=== PATIENT | male | born 1960 | race Caucasian/White ===

== ENCOUNTER 2019-12-14 10:35 | Emergency (ER) | payer OTHER ==
[~2019-12-14] VITALS: Ht 180.3 cm; Wt 81.6 kg
== END 2019-12-14 14:11 | disposition home or self-care (01) ==
LOC: ER 10:35
DX: R42 Dizziness and giddiness (principal)

== ENCOUNTER 2022-09-08 10:46 | Emergency (ER) | payer OTHER ==
[~2022-09-08] VITALS: Ht 177.8 cm; Wt 86.2 kg
== END 2022-09-08 14:36 | disposition home or self-care (01) ==
LOC: ER 10:46
DX: S29.8XXA Other specified injuries of thorax, initial encounter (principal); S19.80XA Other specified injuries of unspecified part of neck, initial encounter; S39.83XA Other specified injuries of pelvis, initial encounter; V19.9XXA Pedal cyclist (driver) (passenger) injured in unspecified traffic accident, initial encounter; Y93.9 Activity, unspecified; Y92.9 Unspecified place or not applicable; R51.9 Headache, unspecified; M54.2 Cervicalgia